=== PATIENT | male | born 1975 | race Caucasian/White ===

== ENCOUNTER 2016-05-13 14:17 | Emergency (ER) | payer SELFPAY ==
[2016-05-13] MEDS ORDERED: DUONEB 0.5-3 MG/3 ml Neb IH ONE ×2 (14:44→15:13)
[2016-05-13] MEDS ORDERED: NORCO 5/325 MG PO ONE (14:45)
[2016-05-13] MEDS ORDERED: NORCO 5/325 MG ONE (14:48)
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
[2016-05-13 16:04] VITALS: BP 136/74; PULSE 82
[2016-05-13 16:18] VITALS: O2SAT 97
--- NOTE | 2016-05-13 20:39 | XRAY ---
Indication: Cough. Comparison: None Portable chest demonstrates left lung peripheral calcified granuloma. Remaining heart, lungs, and bony thorax normal.
== END 2016-05-13 16:38 | disposition home or self-care (01) ==
LOC: ED 14:17
DX: J18.9 Pneumonia, unspecified organism (principal); J11.1 Influenza due to unidentified influenza virus with other respiratory manifestations; J98.01 Acute bronchospasm; R05 Cough; R50.9 Fever, unspecified; R07.89 Other chest pain
CPT/HCPCS: 71010; 87070; 87430; 87631; 94640; 99283; 99284

== ENCOUNTER 2016-05-20 07:49 | Emergency (ER) | payer OTHER ==
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
[2016-05-20] MEDS ORDERED: PROVENTIL 2.5 MG/3 ML NEB IH ONE ×2 (08:20→08:24)
[2016-05-20 08:32] LABS: BASOPHIL % 0.1 % (0.0-0.4); Eosinophil % 0.3 % (0.00-5.0); Granulocytes % 84.7 % (36.0-66.0); Lymphocytes % 11.7 % (24.0-44.0); Mean Cell Volume 91.5 fl (78-100); Mean Corpuscular Hemoglobin 31.3 pg (26-32); Mean Platelet Volume 9.6 fl (6-9.5); Monocytes % 3.2 % (0.0-12.0); Platelet Count 234 K/mm3 (150-450); Red Blood Count 4.73 M/mm3 (4.1-5.6); Red Cell Distribution Width 13.2 % (11.5-14.0); White Blood Count 19.6 K/mm3 (4.0-10.5)
[2016-05-20 08:55] LABS: ALBUMIN 3.7 g/dL (3.4-5.0); ALKALINE PHOSPHATASE 60 U/L (46-116); BILIRUBIN,TOTAL 0.4 mg/dL (0.2-1.0); BLOOD UREA NITROGEN 12 mg/dL (9-20); CHLORIDE 105 mEq/L (98-107); Carbon Dioxide 24.6 mEq/L (21-32); Glucose 108 MG/DL (70-110); Potassium 3.9 mEq/L (3.5-5.1); SGOT/AST 16 U/L (15-37); SGPT/ALT 24 U/L (12-78); SODIUM 142 mEq/L (136-145); Total Protein 6.9 gm/dL (6.4-8.2)
[2016-05-20] MEDS ORDERED: ROCEPHIN 1 Gm-D5w 50 ml Bag** 50 ML IV ONE ×2 (08:55→09:17)
[2016-05-20] MEDS ORDERED: solu-MEDROL 125 MG IV ONE (08:55)
[2016-05-20 08:56] LABS: TROPONIN < 0.017 ng/ml (0.000-0.056)
[2016-05-20] MEDS ORDERED: DUONEB 0.5-3 MG/3 ml Neb IH ONE ×2 (08:59→09:01)
[2016-05-20] MEDS ORDERED: TORAdol 30 mg Injection IV ONE (09:11)
--- NOTE | 2016-05-20 09:12 | XRAY ---
Indication: Left-sided chest pain and cough. Comparison: May 13, 2016. Portable chest unchanged again with left lung calcified granuloma. Remaining heart, lungs, and bony thorax normal.
[2016-05-20] MEDS ORDERED: solu-MEDROL 125 MG ONE (09:17)
[2016-05-20] MEDS ORDERED: TORAdol 30 mg Injection ONE (09:17)
[2016-05-20 11:29] VITALS: BP 141/67; PULSE 70; O2SAT 99
== END 2016-05-20 11:30 | disposition home or self-care (01) ==
LOC: ED 07:49
DX: J98.01 Acute bronchospasm (principal); R05 Cough; R06.02 Shortness of breath
CPT/HCPCS: 36000; 36415; 71020; 80053; 83605; 84484; 85025; 87040; 93005; 93041; 94640; 96365; 96374; 96375; 99283; 99285; J0696; J1885; J2930

== ENCOUNTER 2016-07-06 15:02 | Emergency (ER) | payer SELFPAY ==
[2016-07-06 15:12] VITALS: BP 156/86; PULSE 86; O2SAT 96
[2016-07-06] MEDS ORDERED: Hydromorphone 1 mg/ml Ampule IM ONE (15:27)
[2016-07-06] MEDS ORDERED: Phenergan 25 MG INJ IM ONE (15:28)
[2016-07-06] MEDS ORDERED: Phenergan 25 MG INJ ONE (15:33)
[2016-07-06] MEDS ORDERED: Hydromorphone 1 mg/ml Ampule ONE (15:34)
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
== END 2016-07-06 16:01 | disposition home or self-care (01) ==
LOC: ED 15:02
DX: M62.830 Muscle spasm of back (principal); M54.6 Pain in thoracic spine; M54.2 Cervicalgia
CPT/HCPCS: 96372; 99284; J1170; J2550; L0120